=== PATIENT | male | born 1950 | race Caucasian/White ===

== ENCOUNTER 2016-08-02 11:47 | Observation (INO) | payer MEDICARE ==
[2016-08-02] MEDS ORDERED: NS 0.9% 1000 ML* 1,000 ML IV ONE (12:13)
[2016-08-02 12:40] LABS: Hematocrit 46 % (42-52); Hemoglobin 15.1 g/dl (14.0-18.0); Mean Corpuscular HGB Conc 33 g/dl (31-36); Mean Corpuscular Hemoglobin 31 pg (27-31); Mean Corpuscular Volume 94 fL (80-94); Mean Platelet Volume 9 um3 (7.4-10.4); Red Blood Count 4.88 10^6/ul (4.0-5.4); Red Cell Distribution Width 14 % (10.5-15); White Blood Count 14.8 10^3/ul (3.5-10.8)
[2016-08-02 12:44] LABS: Comments Flag Yes
[2016-08-02 12:45] LABS: Add Diff/Slide Review? Slide Review Added
[2016-08-02 12:48] LABS: Urine Bacteria Absent (Absent)
[2016-08-02 12:55] LABS: Albumin 4.8 g/dL (3.2-5.2); BUN/Creatinine Ratio 27.5 (8-20); C Reactive Protein 31.38 mg/L (< 5.00); Calcium 9.8 mg/dL (8.6-10.3); EGFR African American 60.5 (>60); Globulin 3.1 g/dL (2-4); Total Bilirubin 1.4 mg/dL (0.2-1.0); Total Protein 7.9 g/dL (6.4-8.9)
--- NOTE | 2016-08-02 13:30 | RAD ---
INDICATION: RIGHT flank pain. Hematuria. Dysuria. COMPARISON: None. TECHNIQUE: Multidetector CT images were obtained from the lung bases to the ischial tuberosities. Evaluation of the viscera is limited without IV contrast. Multiplanar reformation. REPORT: Images through the inferior thorax are remarkable for mild interstitial edema and dependent atelectasis. Prosthetic mitral valve noted. Mild cardiomegaly. The liver, gallbladder, pancreas, and spleen are unremarkable. Negative for CT abnormality of the upper GI, small bowel, or appendix visualized along the RIGHT pelvic sidewall. Predominant sigmoid moderately severe colonic diverticulosis without findings of diverticulitis. Negative for ascites or free air. Small fat-containing indirect appearing LEFT inguinal hernia without inflammatory change. Normal adrenal glands. Moderate RIGHT pelvicaliectasis noted with minimal perinephric inflammatory stranding. Negative for ureteral dilatation. 5 mm calcification visualized at the pelvic inlet where the RIGHT ureter crosses the distal RIGHT common iliac artery is most likely a vascular calcification. No definitive ureteral stone visualized. Negative for LEFT hydronephrosis. Unremarkable LEFT ureter. Largely decompressed urinary bladder is remarkable for diffuse wall thickening. Unremarkable prostate. Symmetric seminal vesicles. Negative for lymphadenopathy. Atherosclerotic plaque without aneurysm of the abdominal aorta or iliac arteries. Subchondral cyst at the caudal aspect of the RIGHT sacroiliac joint on the iliac margin. No suspicious focal osseous lesions evident. IMPRESSION: 1. Mild interstitial edema at the visualized lung bases. 2. Moderate RIGHT pelvicaliectasis noted with minimal perinephric inflammatory stranding. Negative for ureteral dilatation. 5 mm calcification visualized at the pelvic inlet where the RIGHT ureter crosses the distal RIGHT common iliac artery is most likely a vascular calcification. No definitive ureteral stone visualized. Consider RIGHT pyelonephritis. 3. Diffusely thickened urinary bladder wall most concerning for cystitis. Correlate with urinalysis.
[2016-08-02 13:43] LABS: Potassium 4.1 mmol/L (3.5-5.0)
[2016-08-02] MEDS ORDERED: cefTRIAXone VIAL(*) 1,000 MG in NS 0.9% 50 ML* 50 ML IVPB ONE (13:48)
[2016-08-02] MEDS ORDERED: cefTRIAXone(*) 1 GM ADVAN/BAG ONE (14:01)
--- NOTE | 2016-08-02 14:33 | ED ---
Anupam Flowers Karl, scribed for Jerry Fair MD on 08/02/16 at 1233 . GI/ HPI - HPI Summary HPI Summary: 65 y/o M presents with 7/10 non-radiating right sided flank pain that began 2 days ago. Pt reported that he has been treating himself with "hot water and ibuprofen" but his pain still persists. Pt , at bedside, reported that the pt has had hematuria and mild pain with urination for the last 4 days and was put on abx for a suspected UTI. Pt denied nausea and vomiting. FHx: kidney stones. 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 - Onset/Duration: Started Days Ago, Atraumatic, Still Present Timing: Constant Severity: Moderate Current Severity: Moderate Pain Intensity: 8 - 0-10 numeric scale Location of Pain: Flank - right Pain Characteristics: Sharp Associated Signs and Symptoms: Positive: Hematuria, Dysuria Aggravating Factor(s): Nothing Alleviating Factor(s): Nothing - Additional Pertinent History Primary Care Physician: [facility] - Allergy/Home Medications Allergies/Adverse Reactions: Allergies Allergy/AdvReac Type Severity Reaction Status Date / Time Milk-related Compounds Allergy Diarrhea Verified 08/02/16 12:00 PMH/Surg Hx/FS Hx/Imm Hx Previously Healthy: No Endocrine/Hematology History: Reports: Hx Anticoagulant Therapy Denies: Hx Diabetes, Hx Thyroid Disease Cardiovascular History: Reports: Hx Hypertension, Hx Rheumatic Fever, Hx Valvular Heart Disease - MV replaced, Other Cardiovascular Problems/Disorders - Endocarditis Denies: Hx Pacemaker/ICD Respiratory History: Denies: Hx Asthma, Hx Chronic Obstructive Pulmonary Disease (COPD) History: Denies: Hx Renal Disease Sensory History: Reports: Hx Contacts or Glasses Opthamlomology History: Reports: Hx Contacts or Glasses Neurological History: Denies: Hx Dementia, Hx Seizures Psychiatric History: Reports: Hx Depression Denies: Hx Substance Abuse - Surgical History Surgery Procedure, Year, and Place: HEART VALVE REPLacement - Immunization History Date of Tetanus Vaccine: nka Date of Influenza Vaccine: nka Infectious Disease History: No Infectious Disease History: Denies: Hx Hepatitis, Hx Human Immunodeficiency Virus (HIV), History Other Infectious Disease, Traveled Outside the [place] in Last 30 Days - Family History Known Family History: Positive: Other - kidney stones - Social History Alcohol Use: Daily Alcohol Amount: glass of wine a day at minimum Substance Use Type: Reports: Marijuana Hx Tobacco Use: Yes Smoking Status (MU): Former Smoker Review of Systems Constitutional: Negative Eyes: Negative ENT: Negative Cardiovascular: Negative Respiratory: Negative Negative: Vomiting, Nausea Positive: dysuria, flank pain - right side, hematuria Musculoskeletal: Negative Skin: Negative Neurological: Negative Psychological: Normal All Other Systems Reviewed And Are Negative: Yes Physical Exam - Summary Physical Exam Summary: VITAL SIGNS: Reviewed. GENERAL: Patient is a well developed and nourished male who is lying comfortable in the stretcher. Patient is not in any acute respiratory distress. HEAD AND FACE: Normocephalic and atraumatic. EYES: PERRLA, EOMI x 2, No injected conjunctiva. EARS: Hearing grossly intact. Ear canals and tympanic membranes are WNL. MOUTH: Oropharynx within normal limits. NECK: Supple, trachea is midline, no adenopathy, no JVD. CHEST: Symmetric, no tenderness at palpation LUNGS: Clear to auscultation bilaterally. No wheezing or crackles. CVS: RRR,, S1 and S2 present, Positive ESM II/. ABDOMEN: Soft, non-tender. No signs of distention. Positive bowel sounds. No rebound no guarding, and no masses palpated. No abdominal bruit or pulsations. Positive right CVATs. EXTREMITIES: FROM in all major joints, no edema, no cyanosis or clubbing. NEURO: Alert and oriented x 3. No acute neurological deficits. Speech is normal. SKIN: Dry and warm Triage Information Reviewed: Yes Vital Signs On Initial Exam: Initial Vitals Temp Pulse Resp BP Pulse Ox 98.5 F 98 16 152/86 100 08/02/16 11:56 08/02/16 11:56 08/02/16 11:56 08/02/16 11:56 08/02/16 11:56 Vital Signs Reviewed: Yes Diagnostics - Vital Signs Vital Signs Temp Pulse Resp BP Pulse Ox 08/02/16 11:56 98.5 F 98 16 152/86 100 - Laboratory Lab Results: Lab Results 08/02/16 08/02/16 08/02/16 Range/Units 12:00 12:00 12:00 WBC 14.8 H (3.5-10.8) 10^3/ul RBC 4.88 (4.0-5.4) 10^6/ul Hgb 15.1 (14.0-18.0) g/dl Hct 46 (42-52) % MCV 94 (80-94) fL MCH 31 (27-31) pg MCHC 33 (31-36) g/dl RDW 14 (10.5-15) % Plt Count 218 (150-450) 10^3/ul MPV 9 (7.4-10.4) um3 Neut % (Auto) 79.6 (38-83) % Lymph % (Auto) 7.4 L (25-47) % Barton % (Auto) 12.7 H (1-9) % Eos % (Auto) 0.1 (0-6) % Baso % (Auto) 0.2 (0-2) % Absolute Neuts (auto) 11.8 H (1.5-7.7) 10^3/ul Absolute Lymphs (auto) 1.1 (1.0-4.8) 10^3/ul Absolute Monos (auto) 1.9 H (0-0.8) 10^3/ul Absolute Eos (auto) 0 (0-0.6) 10^3/ul Absolute Basos (auto) 0 (0-0.2) 10^3/ul Absolute Nucleated RBC 0.01 10^3/ul Nucleated RBC % 0 INR (Anticoag Therapy) 2.50 H (0.89-1.11) Sodium 132 L (133-145) mmol/L Potassium 4.1 (3.5-5.0) mmol/L Chloride 101 (101-111) mmol/L Carbon Dioxide 19 L (22-32) mmol/L Anion Gap 12 H (2-11) mmol/L BUN 41 H (6-24) mg/dL Creatinine 1.49 H (0.67-1.17) mg/dL Est GFR ( Amer) 60.5 (>60) Est GFR (Non-Af Amer) 47.0 (>60) BUN/Creatinine Ratio 27.5 H (8-20) Glucose 113 H (70-100) mg/dL Lactic Acid (0.5-2.0) mmol/L Calcium 9.8 (8.6-10.3) mg/dL Total Bilirubin 1.40 H (0.2-1.0) mg/dL AST 58 H (13-39) U/L ALT 18 (7-52) U/L Alkaline Phosphatase 67 (34-104) U/L C-Reactive Protein 31.38 H (< 5.00) mg/L Total Protein 7.9 (6.4-8.9) g/dL Albumin 4.8 (3.2-5.2) g/dL Globulin 3.1 (2-4) g/dL Albumin/Globulin Ratio 1.5 (1-3) Lipase 27 (11.0-82.0) U/L Urine Color Urine Appearance Urine pH Ur Specific [place] Urine Protein Urine Ketones Urine Blood Urine Nitrate Urine Bilirubin Urine Urobilinogen Ur Leukocyte Esterase Urine WBC (Auto) (Absent) Urine RBC (Auto) (Absent) Urine Bacteria (Absent) Urine Glucose Urine Ascorbic Acid 08/02/16 08/02/16 Range/Units 12:00 12:10 WBC (3.5-10.8) 10^3/ul RBC (4.0-5.4) 10^6/ul Hgb (14.0-18.0) g/dl Hct (42-52) % MCV (80-94) fL MCH (27-31) pg MCHC (31-36) g/dl RDW (10.5-15) % Plt Count (150-450) 10^3/ul MPV (7.4-10.4) um3 Neut % (Auto) (38-83) % Lymph % (Auto) (25-47) % Barton % (Auto) (1-9) % Eos % (Auto) (0-6) % Baso % (Auto) (0-2) % Absolute Neuts (auto) (1.5-7.7) 10^3/ul Absolute Lymphs (auto) (1.0-4.8) 10^3/ul Absolute Monos (auto) (0-0.8) 10^3/ul Absolute Eos (auto) (0-0.6) 10^3/ul Absolute Basos (auto) (0-0.2) 10^3/ul Absolute Nucleated RBC 10^3/ul Nucleated RBC % INR (Anticoag Therapy) (0.89-1.11) Sodium (133-145) mmol/L Potassium (3.5-5.0) mmol/L Chloride (101-111) mmol/L Carbon Dioxide (22-32) mmol/L Anion Gap (2-11) mmol/L BUN (6-24) mg/dL Creatinine (0.67-1.17) mg/dL Est GFR ( Amer) (>60) Est GFR (Non-Af Amer) (>60) BUN/Creatinine Ratio (8-20) Glucose (70-100) mg/dL Lactic Acid 1.2 (0.5-2.0) mmol/L Calcium (8.6-10.3) mg/dL Total Bilirubin (0.2-1.0) mg/dL AST (13-39) U/L ALT (7-52) U/L Alkaline Phosphatase (34-104) U/L C-Reactive Protein (< 5.00) mg/L Total Protein (6.4-8.9) g/dL Albumin (3.2-5.2) g/dL Globulin (2-4) g/dL Albumin/Globulin Ratio (1-3) Lipase (11.0-82.0) U/L Urine Color Red A Urine Appearance Cloudy Urine pH TNP Ur Specific [place] TNP Urine Protein TNP Urine Ketones TNP Urine Blood TNP Urine Nitrate TNP Urine Bilirubin TNP Urine Urobilinogen TNP Ur Leukocyte Esterase TNP Urine WBC (Auto) 3+(>20/hpf) H (Absent) Urine RBC (Auto) 3+(>10/hpf) H (Absent) Urine Bacteria Absent (Absent) Urine Glucose TNP Urine Ascorbic Acid TNP Result Diagrams: 08/02/16 12:00 08/02/16 12:00 Lab Statement: Any lab studies that have been ordered have been reviewed, and results considered in the medical decision making process. - CT CT Abd/Pelvis CT Interpretation: Positive (See Comments) CT Interpretation Completed By: Radiologist - IMPRESSION: 1. Mild interstitial edema at the visualized lung bases. 2. Moderate RIGHT pelvicaliectasis noted with minimal perinephric inflammatory stranding. Negative for ureteral dilatation. 5 mm calcification visualized at the pelvic inlet where the RIGHT ureter crosses the distal RIGHT common iliac artery is most likely a vascular calcification. No definitive ureteral stone visualized. Consider RIGHT pyelonephritis. 3. Diffusely thickened urinary bladder wall most concerning for cystitis. Correlate with urinalysis. GIGU Course/Dx - Course Assessment/Plan: 65 y/o M presents with 7/10 non-radiating right sided flank pain that began 2 days ago. Pt reported that he has been treating himself with "hot water and ibuprofen" but his pain still persists. Pt , at bedside, reported that the pt has had hematuria and mild pain with urination for the last 4 days and was put on abx for a suspected UTI. Pt denied nausea and vomiting. FHx: kidney stones. Blood work: Abdominal and Pelvic CT impression: 1. Mild interstitial edema at the visualized lung bases. 2. Moderate RIGHT pelvicaliectasis noted with minimal perinephric inflammatory stranding. Negative for ureteral dilatation. 5 mm calcification visualized at the pelvic inlet where the RIGHT ureter crosses the distal RIGHT common iliac artery is most likely a vascular calcification. No definitive ureteral stone visualized. Consider RIGHT pyelonephritis. 3. Diffusely thickened urinary bladder wall most concerning for cystitis. Correlate with urinalysis. In the ED course he was given IV fluids, Rocephin since patient since to have Cystitis. He did not require pain medications. Questionable kidney stone. I discussed the case Dr. Mcadams and he recommends for the patient to be admitted to the hospitalist, IV antibiotics, retroperitoneal U/S in AM. I discuss my physical exam, findings and test results with Dr. Morin from the hospitalist services and she agrees to admit patient to his services. Patient is hemodynamically stable alert and oriented x 3. - Diagnoses Differential Diagnoses - Male: Renal Calculi, Renal Colic, Ureteral Calculi, Urinary Tract Infection Provider Diagnoses: Hematuria, Cystitis, Questionable kidney stone, Renal failure - Physician Notifications Discussed Care Of Patient With: Dr. Mcadams (Urology) at 12:[address] abd/Pelvis. Dr. Mcadams at 14:02 who reccomended placing the pt on abx and Rocephin, and to admit the pt and repeat retroperitoneal US in the morning. Dr. Morin (Hospitalist) at 14:05 who agreed to admit the pt. Discharge - Discharge Plan Condition: Stable Disposition: ADMITTED TO [facility] documentation as recorded by the Anupam cramer Karl accurately reflects the service I personally performed and the decisions made by me, Jerry Fair MD.
[2016-08-02 15:28] LABS: Urine Bacteria Absent (Absent); Urine Bilirubin Negative (Negative); Urine Glucose Negative (Negative); Urine Nitrite Negative (Negative)
[2016-08-02] MEDS ORDERED: Acetaminophen TAB* 325 MG ONE (16:58)
[2016-08-02] MEDS ORDERED: Warfarin TAB(*) 6 MG PO SCH (17:00)
[2016-08-02] MEDS ORDERED: Acetaminophen TAB* 325 MG PO PRN (17:25)
[2016-08-02] MEDS: oxyCODONE/Acetamin 5/325 MG* TAB PO PRN (20:12)
[2016-08-02] MEDS: Tamsulosin CAP* 0.4 MG PO SCH (20:32)
[2016-08-02] MEDS: Labetalol TAB* 200 MG PO SCH (20:32)
--- NOTE | 2016-08-02 21:38 | HP ---
ADMISSION HISTORY AND PHYSICAL: DATE OF ADMISSION: 08/02/16 PRIMARY CARE PROVIDER: Dr. Ge at [facility] HEALTHCARE PROXY: His , Libra. CODE STATUS: Full. SOURCE OF INFORMATION: History obtained from interview with the patient. RELIABILITY: Fair. CHIEF COMPLAINT: Right flank pain. HISTORY OF PRESENT ILLNESS: This 65-year-old man with past medical history of bacterial endocarditis around 2009 complicated by need for mitral valve replacement, now on lifelong anticoagulation who has been in his usual state of health until 3 to 4 days prior and notes he woke up in the middle of the night with right flank pain and felt the sensation that he needed to urinate. He tried to urinate, but only little came out, but he did not notice associated dysuria. The pain continued, he described bad enough that he was almost writhing in bed. He was using hot water as well as Motrin, but notes that he only took 4 caps of Motrin over 2 days with minimal pain relief. He continued to have dysuria associated with urinary hesitancy, but without urinary frequency. He had decreased p.o. intake. Two days prior to his presentation, he went to see his PCP, was seen by another physician in the clinic because of increasingly dark urine. He was noted to have right flank pain at that time. Urinalysis and culture was sent and he was started on an unknown antibiotics. The pain continued and so he presented to the emergency room today. He denies any recent fevers, chills, or night sweats. He denies any cough, shortness of breath, chest pain, nausea, vomiting, lightheadedness, loss of consciousness, or near loss of consciousness. He denies bleeding from any other sources. In the emergency room, his pain is well controlled, he was interactive, pleasant , in no distress. He had no other complaints. PAST MEDICAL HISTORY: History of atrial fibrillation, history of subacute bacterial endocarditis around 2009, history of rheumatic fever, history of mitral valve replacement, lifelong anticoagulation, history of hypertension. MEDICATIONS: 1. Labetalol 200 mg twice daily. 2. Verapamil 240 mg daily. 3. Coumadin 6 mg daily, adjust as needed. 4. Folic acid 1 tab daily. 5. Ferrous sulfate 325 mg daily. 6. Vitamin D3 2000 units daily, although he notes he takes this from his . 7. Viagra 50 units daily as needed. 8. Aspirin 81 mg daily. ALLERGIES: MILK-RELATED COMPOUNDS. FAMILY HISTORY: Kidney stones. SOCIAL HISTORY: Former tobacco. Drinks wine weekly. 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 REVIEW OF SYSTEMS: As per HPI, otherwise all other systems negative. PHYSICAL EXAMINATION GENERAL: Appears stated age, lying on his left side in bed, interactive, pleasant, in no apparent distress. VITAL SIGNS: In the emergency room, blood pressure 156/84, heart rate 82, temp 98, respiratory rate is 16, T-max in the emergency room was 98.5, 98% on room air. HEENT: His oropharynx is clear. He has moist mucous membranes. Sclerae anicteric. NECK: He has non-elevated JVD. No lymphadenopathy. LUNGS: Clear to auscultation. HEART: He has regular rate and rhythm. He has 2/6 holosystolic ejection murmur loudest at the apex, nondisplaced PMI. ABDOMEN: Soft, nontender, nondistended. No suprapubic tenderness. He has right costovertebral angle tenderness. EXTREMITIES: Warm, well perfused. 2+ peripheral pulses. Less than 2-second cap refill. Good skin turgor. No clubbing, cyanosis, or edema. NEUROLOGIC: He is alert and oriented x3. His cranial nerves II through XII are intact. He has no apparent anxiety, agitation, or depression. LABORATORY DATA/DIAGNOSTIC STUDIES: Labs reviewed, notable for urinalysis positive for 2+ protein, trace ketones, 3+ blood, 2 to 3+ white blood cells and no bacteria. BUN is 41, creatinine 1.49, bicarbonate is 19, sodium 132, CRP is 31, total bilirubin 1.4, AST 58, ALT 18, INR is 2.5. White blood cell count is 14.8, 79% neutrophils, hemoglobin is 15.1, platelets of 218. Data reviewed, CT abdomen and pelvis. IMPRESSION: Mild interstitial edema at the visualized lung bases. Moderate right pelvicaliectasis noted with minimal perinephric inflammatory stranding. Negative for ureteral dilatation. A 5 mm calcification visualized at the pelvic inlet where the right ureter crosses the distal right common iliac artery is most likely a vascular calcification. No definite ureteral stone is visualized. Consider right pyelonephritis. Diffusely thickened urinary bladder wall most concerning for cystitis. Correlate with urinalysis. ASSESSMENT AND PLAN: A 65-year-old man on full dose anticoagulation for mitral valve replacement, developed right flank pain associated with hematuria. Found with acute kidney injury in the emergency room. Right flank pain. CAT scan is not definitive for pyelonephritis versus nephrolithiasis based on the location of calcification. His pain is nonradiating. Certainly, pyelonephritis is a possibility in the setting of the notable leukocytosis. In either case, a stone would not appear to be obstructing at this point. We will treat for pyelonephritis, received ceftriaxone in the emergency room and dose again tomorrow. Contact [facility] for records regarding recent urinalysis and culture sent which would explain absent bacteria on our urinalysis here. Lactated Ringer's, given anion gap metabolic acidosis for 2 additional L. Start finasteride as well as tamsulosin should this be nephrolithiasis. Acute kidney injury in the setting of potentially urinary tract infection or nephrolithiasis as well as hematuria. Lactated Ringer's as above and check in the morning. Hematuria. Again in above, I have suspected urinary tract infection especially with thickened bladder wall while on full dose Coumadin. I cannot hold Coumadin in this situation in the setting of mechanical mitral valve. However, we will hold the patient's low dose aspirin. Currently, the patient appears hemoconcentrated, not be losing significant amounts of blood to his urine. In fact, his urine appears to be clearing while in the emergency room. First sample was maroon colored and repeat urine while the patient was in the room was dark trent. Mechanical mitral valve. Continue Coumadin, check INR in the morning. History of atrial fibrillation. Continue labetalol and verapamil. DVT prophylaxis. Coumadin on goal 2.5 to 3.5 given mechanical mitral valve. Code status is full, discussed with the patient. [id number]/[facility] #: [id number] [facility]
--- NOTE | 2016-08-02 23:41 | CONS ---
UROLOGY CONSULTATION: DATE OF CONSULT: 08/02/16 AGE: 65 years, male. REQUESTING PHYSICIAN: Dr. Fair in the emergency department. DIAGNOSES: 1. Right flank pain. 2. Gross hematuria. 3. Right hydronephrosis. HISTORY OF PRESENT ILLNESS: Mook Juan is a 65-year-old gentleman who is anticoagulated on Coumadin. He presented with 3 to 4-day history of right flank pain and gross hematuria. He had been seen by primary provider at [facility] few days ago for this complaint and had been started on antibiotics with a presumed diagnosis of urinary infection. I am not able to find at the present time whether a urine culture was done and whether this was positive. He continued to have progressively worsening right flank pain and gross hematuria and presented to the emergency room. CT scan there was done, which showed moderate right hydronephrosis. There was no definite ureteral dilatation noted. There was a 5 mm calcification noted in the proximity of the right ureter close to the iliac vessels, which according to Dr. Cordon is most likely to be a vascular calcification. There was no other obvious explanation for the right hydronephrosis, although the bladder was thick walled with a presumed diagnosis of cystitis. There is no prior history of kidney stones. There is a strong family history of kidney stones in the form of his father and brothers. He is on Coumadin for a history of valvular disorder and is status post mitral valve replacement a few years ago with a [facility] valve. He also has a history of hypertension, rheumatic fever, and is followed by Dr. Vernon of [facility]. PHYSICAL EXAM: Reveals a pleasant healthy appearing gentleman, who is currently fairly comfortable. Blood pressure is 152/86, pulse 98 per minute, respirations 16 per minute, oxygen saturation 100%. Cardiovascular Exam: Regular rate and rhythm. S1 and S2. There is a 2/6 systolic ejection murmur. Lungs are clear bilaterally. Abdomen is soft and nontender. The patient is not distended. There is right flank tenderness. DIAGNOSTIC STUDIES/LAB DATA: I reviewed the labs and the imaging studies and had a detailed discussion with the patient. Of note in the imaging studies, his creatinine is elevated to 1.49 and the white count is elevated to 14.8. The urinalysis showed red colored urine with 3+ rbc's and wbc's, but absent bacteria. IMPRESSION: My suspicion is given the persistence of right flank pain and hematuria with findings of right hydronephrosis that he most likely has a calculus in the right ureter. Since he is currently comfortable, the plan will be to keep him continue hydration and to continue Flomax 0.4 mg once a day for medical expulsive therapy. The plan is to do a renal sonogram tomorrow morning and to see if the hydronephrosis improves or persists. If the hydronephrosis persists or the flank pain worsens, then consideration would have to be given to right ureteroscopy, stent insertion, possible laser. I have discussed all these in detail with Mr. Juan and all his questions were answered. CC: Dr. Ge; Dr. Mcadams; Dr. Tanner Dawson * [id number]/[facility] #: [id number] MTDTr[facility]
[2016-08-03] MEDS: oxyCODONE/Acetamin 5/325 MG* TAB PO PRN ×4 (00:11→17:04)
[2016-08-03 06:02] LABS: Hematocrit 34 % (42-52); Hemoglobin 11.5 g/dl (14.0-18.0); Mean Corpuscular HGB Conc 34 g/dl (31-36); Mean Corpuscular Hemoglobin 32 pg (27-31); Mean Corpuscular Volume 93 fL (80-94); Mean Platelet Volume 9 um3 (7.4-10.4); Red Blood Count 3.65 10^6/ul (4.0-5.4); Red Cell Distribution Width 14 % (10.5-15); White Blood Count 7.7 10^3/ul (3.5-10.8)
[2016-08-03 06:15] LABS: BUN/Creatinine Ratio 28.2 (8-20); Calcium 8.7 mg/dL (8.6-10.3); EGFR African American 85.9 (>60); EGFR Non-African American 66.8 (>60); Potassium 4.2 mmol/L (3.5-5.0)
[2016-08-03] MEDS: Ferrous Sulfate TAB* 325 MG PO SCH (10:08)
[2016-08-03] MEDS: Folic Acid TAB* 1 MG PO SCH (10:08)
[2016-08-03] MEDS: Verapamil SR TAB* 240 MG PO SCH (10:08)
[2016-08-03] MEDS: Finasteride TAB* 5 MG PO SCH (10:19)
[2016-08-03] MEDS: Labetalol TAB* 200 MG PO SCH ×2 (10:19→21:53)
--- NOTE | 2016-08-03 10:45 | RAD ---
Indication: RIGHT flank pain. Gross hematuria. Comparison: August 02, 2016 CT. Technique: Renal ultrasound. Report: 11.7 x 6.0 x 6.1 cm RIGHT kidney with normal cortical echogenicity is remarkable for mild hydronephrosis with suggestion of interval decrease compared with the CT of one day prior. Negative for perinephric fluid. No conspicuous RIGHT renal stones. RIGHT ureteral jet documented at the urinary bladder. Dependent intermediate echo debris in the urinary bladder consistent with blood products given the clinical history. 11.8 x 5.5 x 4.5 cm LEFT kidney with normal cortical echogenicity is negative for conspicuous stones, hydronephrosis, or focal lesions. Incidental 3 cm subcapsular hyperechoic lesion at the RIGHT posterior hepatic segment corresponding with a subtle hypodense lesion on CT is most consistent with a hemangioma. IMPRESSION: Interval decrease in magnitude of RIGHT hydronephrosis compared with the CT of one day prior. RIGHT ureteral jet documented.
[2016-08-03] MEDS: cefTRIAXone VIAL(*) 1,000 MG in NS 0.9% 50 ML* 50 ML IVPB SCH (14:07)
[2016-08-03 14:18] LABS: Hematocrit 32 % (42-52); Hemoglobin 10.7 g/dl (14.0-18.0)
--- NOTE | 2016-08-03 14:19 | PN ---
Subjective Date of Service: 08/03/16 Interval History: Pain still present but improved Urine is maroon colored Has no other complaints Objective Active Medications: Acetaminophen (Tylenol Tab*) 650 mg PO Q6H PRN PRN Reason: PAIN Last Admin: 08/02/16 23:20 Dose: 650 mg Ferrous Sulfate (Ferrous Sulfate Tab*) 325 mg PO DAILY [facility] Last Admin: 08/03/16 10:08 Dose: 325 mg Finasteride (Proscar Tab*) 5 mg PO DAILY [facility] Last Admin: 08/03/16 10:19 Dose: 5 mg Folic Acid (Folvite Tab*) 1 mg PO DAILY [facility] Last Admin: 08/03/16 10:08 Dose: 1 mg Lactated Ringer's (Lactated Ringers 1000 Ml Bag*) 1,000 mls @ 150 mls/hr IV PER RATE [facility] Stop: 08/03/16 22:39 Last Admin: 08/03/16 00:15 Dose: 150 mls/hr Ceftriaxone Sodium 1,000 mg/ (Sodium Chloride) 50 mls @ 200 mls/hr IVPB Q24H [facility] Last Admin: 08/03/16 14:07 Dose: 200 mls/hr Lactated Ringer's (Lactated Ringers 1000 Ml Bag*) 1,000 mls @ 150 mls/hr IV .PER RATE [facility] Labetalol HCl (Trandate Tab*) 200 mg PO BID [facility] Last Admin: 08/03/16 10:19 Dose: 200 mg Oxycodone/Acetaminophen (Percocet 5/325 Tab*) 1 tab PO Q4H PRN PRN Reason: Pain Last Admin: 08/03/16 12:39 Dose: 1 tab Pharmacy Profile Note (Coumadin Daily Reminder*) 1 note FOLLOW UP 1700 [facility] Tamsulosin HCl (Flomax Cap*) 0.4 mg PO BEDTIME [facility] Last Admin: 08/02/16 20:32 Dose: 0.4 mg Verapamil HCl (Calan Sr Tab*) 240 mg PO DAILY [facility] Last Admin: 08/03/16 10:08 Dose: 240 mg Vital Signs 08/02/16 08/02/16 08/02/16 15:00 15:58 16:00 Temperature Pulse Rate 86 84 84 Respiratory Rate Blood Pressure 139/74 139/73 (mmHg) O2 Sat by Pulse 96 96 95 Oximetry 08/02/16 08/02/16 08/02/16 16:50 16:57 17:45 Temperature 99.6 F 99.6 F Pulse Rate 82 82 Respiratory 18 16 16 Rate Blood Pressure 154/66 154/66 (mmHg) O2 Sat by Pulse 98 Oximetry 08/02/16 08/02/16 08/02/16 19:56 20:00 20:12 Temperature 97.9 F Pulse Rate 71 Respiratory 20 16 18 Rate Blood Pressure 141/66 (mmHg) O2 Sat by Pulse 95 Oximetry 08/02/16 08/02/16 08/03/16 22:12 23:41 00:11 Temperature 97.8 F Pulse Rate 63 Respiratory 16 16 16 Rate Blood Pressure 145/70 (mmHg) O2 Sat by Pulse 98 Oximetry 08/03/16 08/03/16 08/03/16 02:11 07:52 08:00 Temperature Pulse Rate Respiratory 16 16 18 Rate Blood Pressure (mmHg) O2 Sat by Pulse Oximetry 08/03/16 08/03/16 08/03/16 08:41 09:52 12:39 Temperature 97.5 F Pulse Rate 86 Respiratory 20 16 16 Rate Blood Pressure 164/78 (mmHg) O2 Sat by Pulse 98 Oximetry Appearance: NAD Eyes: No Scleral Icterus, PERRLA Ears/Nose/Mouth/Throat: Mucous Membranes Moist Neck: NL Appearance and Movements; NL JVP, Trachea Midline Respiratory: Symmetrical Chest Expansion and Respiratory Effort, Clear to Auscultation Cardiovascular: RRR, - - 2/6 holosystolic murmur Abdominal: NL Sounds; No Tenderness; No Distention, No Hepatosplenomegaly, - - right CVAT Skin: No Rash or Ulcers Neurological: Alert and Oriented x 3 Result Diagrams: 08/03/16 05:12 08/03/16 05:12 Additional Lab and Data: Lab Results 08/02/16 08/02/16 08/02/16 Range/Units 12:00 12:00 12:00 WBC 14.8 H (3.5-10.8) 10^3/ul RBC 4.88 (4.0-5.4) 10^6/ul Hgb 15.1 (14.0-18.0) g/dl Hct 46 (42-52) % MCV 94 (80-94) fL MCH 31 (27-31) pg MCHC 33 (31-36) g/dl RDW 14 (10.5-15) % Plt Count 218 (150-450) 10^3/ul MPV 9 (7.4-10.4) um3 Neut % (Auto) 79.6 (38-83) % Lymph % (Auto) 7.4 L (25-47) % Sabine % (Auto) 12.7 H (1-9) % Eos % (Auto) 0.1 (0-6) % Baso % (Auto) 0.2 (0-2) % Absolute Neuts (auto) 11.8 H (1.5-7.7) 10^3/ul Absolute Lymphs (auto) 1.1 (1.0-4.8) 10^3/ul Absolute Monos (auto) 1.9 H (0-0.8) 10^3/ul Absolute Eos (auto) 0 (0-0.6) 10^3/ul Absolute Basos (auto) 0 (0-0.2) 10^3/ul Absolute Nucleated RBC 0.01 10^3/ul Nucleated RBC % 0 INR (Anticoag Therapy) 2.50 H (0.89-1.11) Sodium 132 L (133-145) mmol/L Potassium 4.1 (3.5-5.0) mmol/L Chloride 101 (101-111) mmol/L Carbon Dioxide 19 L (22-32) mmol/L Anion Gap 12 H (2-11) mmol/L BUN 41 H (6-24) mg/dL Creatinine 1.49 H (0.67-1.17) mg/dL Est GFR ( Amer) 60.5 (>60) Est GFR (Non-Af Amer) 47.0 (>60) BUN/Creatinine Ratio 27.5 H (8-20) Glucose 113 H (70-100) mg/dL Lactic Acid (0.5-2.0) mmol/L Calcium 9.8 (8.6-10.3) mg/dL Total Bilirubin 1.40 H (0.2-1.0) mg/dL AST 58 H (13-39) U/L ALT 18 (7-52) U/L Alkaline Phosphatase 67 (34-104) U/L C-Reactive Protein 31.38 H (< 5.00) mg/L Total Protein 7.9 (6.4-8.9) g/dL Albumin 4.8 (3.2-5.2) g/dL Globulin 3.1 (2-4) g/dL Albumin/Globulin Ratio 1.5 (1-3) Lipase 27 (11.0-82.0) U/L Urine Color Urine Appearance Urine pH Ur Specific Tillson Urine Protein Urine Ketones Urine Blood Urine Nitrate Urine Bilirubin Urine Urobilinogen Ur Leukocyte Esterase Urine WBC (Auto) (Absent) Urine RBC (Auto) (Absent) Urine Bacteria (Absent) Urine Glucose Urine Ascorbic Acid 08/02/16 08/02/16 Range/Units 12:00 12:10 WBC (3.5-10.8) 10^3/ul RBC (4.0-5.4) 10^6/ul Hgb (14.0-18.0) g/dl Hct (42-52) % MCV (80-94) fL MCH (27-31) pg MCHC (31-36) g/dl RDW (10.5-15) % Plt Count (150-450) 10^3/ul MPV (7.4-10.4) um3 Neut % (Auto) (38-83) % Lymph % (Auto) (25-47) % Sabine % (Auto) (1-9) % Eos % (Auto) (0-6) % Baso % (Auto) (0-2) % Absolute Neuts (auto) (1.5-7.7) 10^3/ul Absolute Lymphs (auto) (1.0-4.8) 10^3/ul Absolute Monos (auto) (0-0.8) 10^3/ul Absolute Eos (auto) (0-0.6) 10^3/ul Absolute Basos (auto) (0-0.2) 10^3/ul Absolute Nucleated RBC 10^3/ul Nucleated RBC % INR (Anticoag Therapy) (0.89-1.11) Sodium (133-145) mmol/L Potassium (3.5-5.0) mmol/L Chloride (101-111) mmol/L Carbon Dioxide (22-32) mmol/L Anion Gap (2-11) mmol/L BUN (6-24) mg/dL Creatinine (0.67-1.17) mg/dL Est GFR ( Amer) (>60) Est GFR (Non-Af Amer) (>60) BUN/Creatinine Ratio (8-20) Glucose (70-100) mg/dL Lactic Acid 1.2 (0.5-2.0) mmol/L Calcium (8.6-10.3) mg/dL Total Bilirubin (0.2-1.0) mg/dL AST (13-39) U/L ALT (7-52) U/L Alkaline Phosphatase (34-104) U/L C-Reactive Protein (< 5.00) mg/L Total Protein (6.4-8.9) g/dL Albumin (3.2-5.2) g/dL Globulin (2-4) g/dL Albumin/Globulin Ratio (1-3) Lipase (11.0-82.0) U/L Urine Color Red A Urine Appearance Cloudy Urine pH TNP Ur Specific Tillson TNP Urine Protein TNP Urine Ketones TNP Urine Blood TNP Urine Nitrate TNP Urine Bilirubin TNP Urine Urobilinogen TNP Ur Leukocyte Esterase TNP Urine WBC (Auto) 3+(>20/hpf) H (Absent) Urine RBC (Auto) 3+(>10/hpf) H (Absent) Urine Bacteria Absent (Absent) Urine Glucose TNP Urine Ascorbic Acid TNP Assess/Plan/Problems-Billing Assessment: 65 yo M 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 Holding coumadin (4) History of atrial fibrillation Comment: verapamil labetalol (5) DVT prophylaxis Comment: coumadin
[2016-08-03] MEDS: Tamsulosin CAP* 0.4 MG PO SCH (21:53)
[2016-08-04 06:09] LABS: Hematocrit 31 % (42-52); Hemoglobin 10.3 g/dl (14.0-18.0); Mean Corpuscular HGB Conc 34 g/dl (31-36); Mean Corpuscular Hemoglobin 32 pg (27-31); Mean Corpuscular Volume 93 fL (80-94); Mean Platelet Volume 8 um3 (7.4-10.4); Red Blood Count 3.26 10^6/ul (4.0-5.4); Red Cell Distribution Width 14 % (10.5-15); White Blood Count 4.5 10^3/ul (3.5-10.8)
[2016-08-04 06:22] LABS: BUN/Creatinine Ratio 22.2 (8-20); Calcium 8.3 mg/dL (8.6-10.3); EGFR Non-African American 75.4 (>60)
[2016-08-04] MEDS: Ferrous Sulfate TAB* 325 MG PO SCH (08:53)
[2016-08-04] MEDS: Verapamil SR TAB* 240 MG PO SCH (08:53)
[2016-08-04] MEDS: Folic Acid TAB* 1 MG PO SCH (08:54)
[2016-08-04] MEDS: Labetalol TAB* 200 MG PO SCH (08:55)
[2016-08-04] MEDS: Finasteride TAB* 5 MG PO SCH (08:56)
[2016-08-04] MEDS ORDERED: Iohexol 300* (CONTRAST) 10 ML SDV IV ONE (11:46)
--- NOTE | 2016-08-04 13:27 | RAD ---
CLINICAL HISTORY: Kidney infection COMPARISON: Scan dated August 03, 2016, CT dated August 02, 2016 TECHNIQUE: Multiple contiguous axial CT scans were obtained of the abdomen and pelvis both before and after the administration of nonionic intravenous contrast. Delayed images were obtained through the renal collecting system. Coronal and sagittal multiplanar reformations are submitted for review. 3-D volumetric reconstructions are submitted of the renal collecting system. Oral contrast was not administered. FINDINGS: LUNG BASES: There is interlobular septal thickening of the lung bases bilaterally. LIVER: There is a peripherally enhancing hepatic lesion the right lobe of liver. Imaging characteristics are most consistent with hemangioma. BILE DUCTS: There is no intrahepatic or extrahepatic biliary dilatation. GALLBLADDER: The gallbladder is normal, without pericholecystic inflammatory change. PANCREAS: The pancreas is normal, without mass or ductal dilatation. SPLEEN: Normal in size and appearance. UPPER GI TRACT: Evaluation of the gastrointestinal tract is limited by incomplete gastric distention. The upper GI tract is unremarkable. SMALL BOWEL AND MESENTERY: The small bowel is normal in contour, course, and caliber. There is no obstruction or dilatation. COLON: There are multiple diverticula of the sigmoid colon. There is no pericolonic inflammatory change. ADRENALS: Normal bilaterally. KIDNEYS: There has been interval decrease in the degree of pelviectasis on the right. There is thickening of the urothelium diffusely of the right ureter and renal pelvis BLADDER: The bladder is smooth in contour. PELVIC ORGANS: The prostate gland is normal. The seminal vesicles are symmetric. AORTA: There is calcific atherosclerotic disease of the abdominal aorta and its branches, without aneurysmal dilatation IVC: Unremarkable LYMPH NODES: There is no lymphadenopathy by size criteria. ABDOMINAL WALL: There is no evidence for abdominal wall hernia. BONES AND SOFT TISSUES: There are minimal degenerative changes. There is soft tissue density of the left S2 nerve root with widening of the foramen OTHER: None IMPRESSION: 1. THERE IS THICKENING OF THE UROTHELIUM OF THE RIGHT RENAL COLLECTING SYSTEM WITH INTERVAL DECREASE IN THE DEGREE OF PELVIECTASIS ON THE RIGHT. THIS MAY REFLECT AN INFLAMMATORY OR INFECTIOUS PROCESS OF THE UROTHELIUM. UROTHELIAL NEOPLASM IS ALSO WITHIN THE DIFFERENTIAL, BUT IS CONSIDERED LESS LIKELY. 2. DIVERTICULOSIS. 3. ATHEROSCLEROSIS 4. HEPATIC HEMANGIOMA. 5. 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 RECOMMEND FURTHER EVALUATION WITH CONTRAST-ENHANCED MRI OF THE SACRUM
[2016-08-04] MEDS: cefTRIAXone VIAL(*) 1,000 MG in NS 0.9% 50 ML* 50 ML IVPB SCH (14:52)
[2016-08-04 16:46] VITALS: BP 139/62
--- NOTE | 2016-08-05 08:19 | DS ---
DISCHARGE SUMMARY: DATE OF ADMISSION: 08/02/16 DATE OF DISCHARGE: 08/04/16 PRIMARY CARE PROVIDER: Emiliano Al MD. UROLOGIST: Wade Mcadams MD. PRIMARY DIAGNOSIS: Hematuria. SECONDARY DIAGNOSES: 1. Suspected pyelonephritis. 2. Acute kidney injury. 3. History of mitral valve repair, on Coumadin goal 2.5 - 3.5, supratherapeutic INR. 4. History of hypertension. MEDICATIONS ON DISCHARGE: 1. Verapamil 240 mg daily. 2. Labetalol 200 mg twice daily. 3. Folic acid one tablet daily. 4. Ferrous sulphate 325 mg daily. 5. Vitamin D3 2000 units daily. 6. Sildenafil 50 mg as needed daily. 7. Tamsulosin 0.4 mg daily. 8. Ciprofloxacin 500 mg twice daily for four additional days. 9. Coumadin hold until INR recheck and restart per primary care provider. Next check is tomorrow, already scheduled at discharge. PERTINENT MICROBIOLOGY: 1. Urine, no growth to date. 2. Urine culture obtained from [place], checked prior to initiation of antibiotics, also no growth to date. 3. Urine cytology, also sent by [place], negative for malignant cells. PERTINENT LABORATORY DATA: 1. Hemoglobin 15 on admission, 10 on discharge, stable for 48 hours. 2. Creatinine on admission 1.49, on discharge 0.99. PERTINENT IMAGING PERFORMED DURING HOSPITAL STAY: 1. CT abdomen and pelvis: Mild interstitial edema of the lung bases. Moderate right pelvocaliectasis noted with minimal inflammatory stranding. Negative for ureteral dilatation. A 5-mm calcification visualized at the pelvic inlet where the right ureter crosses the distal right common iliac artery is most likely a vascular calcification. No definitive ureteral stone visualized. Consider right pyelonephritis. Diffusely thickened urinary bladder wall, most concerning for cystitis. 2. Renal ultrasound performed the following day. Interval decrease in magnitude of right hydronephrosis compared with the CTM the prior day, right ureteral jet is identified. 3. CT urogram performed the following day. Impression: There is thickness of the urothelium of the right renal collecting system with interval decrease and a degree of pelvocaliectasis on the right. This may reflect an inflammatory infectious process of the urothelium. Urothelial neoplasm is also within the differential, but is considered less likely. Hepatic hemangioma. In the bulbous part, there is a soft tissue density of the left S2 nerve root with widening of the foramen which may represent a peripheral nerve sheath tumor. Recommend further evaluation with contrast-enhanced MRI of the sacrum. HISTORY OF PRESENT ILLNESS AND HOSPITAL COURSE: This is a 65-year-old man. Past medical history as outlined in the history of present illness. On the day of admission, presented to the hospital after seven days of right flank pain and then developing hematuria. During the course of the hospital stay, the patient's INR became supratherapeutic. He was treated with Ceftriaxone for presumed pyelonephritis. He remained afebrile. His right flank pain improved, and his hematuria improved as well. It is unclear the etiology of his hematuria. At this point, it is possible that he had nephrolithiasis with a stone that had passed. Cystitis with pyelonephritis is also a possibility, improvement with antibiotics. To be discharged on Ciprofloxacin, although urine cultures here and in [place] remained negative. It is followed in conjunction with Dr. Mcadams, who will follow with patient in clinic. If he has recurrent hematuria, he is to receive a cystoscopy. Incidentally noted was an S2 nerve root enhancement, which is just followed with an MRI as indicated above. There are no complications during this patient's hospital stay. On the day of the discharge, the patient had no pain, was tolerating diet, was ambulatory, and had clear urine. DISCHARGE FOLLOWUP: At followup, please: 1. INR is to be rechecked tomorrow. Restart Coumadin based on results, goal 2.5 to 3.5. 2. Ensure patient follows with Dr. Mcadams for continued evaluation. 3. The patient is to have an MRI of the pelvis with contrast to evaluate for nerve sheath tumor. MRI has been ordered and placed on the patient's discharge summary, although not scheduled. Reasons to return to the hospital include but not limited to recurrent or worsening symptoms including flank pain, abdominal pain, bleeding from any source, chest pain, shortness of breath, nausea, vomiting, lightheadedness, loss of consciousness, fever, chills, night sweats or inability to obtain or tolerate his medications were discussed with the patient. He acknowledged understanding. TIME SPENT: Greater than 45 minutes were spent discharging the patient, greater than half was spent [id number] with the patient. CC: Emiliano Al MD; Wade Mcadams MD * [id number]/[facility] #: [id number] [facility]ENTERTracy
== END 2016-08-04 19:05 | disposition home or self-care (01) ==
LOC: ED 11:47 → MED 14:51
PROVIDERS: ADMIT Internal Medicine; ATTEND Internal Medicine
DX: N30.91 Cystitis, unspecified with hematuria (principal); I48.91 Unspecified atrial fibrillation; N17.9 Acute kidney failure, unspecified; I10 Essential (primary) hypertension; K57.30 Diverticulosis of large intestine without perforation or abscess without bleeding; R60.9 Edema, unspecified; Z79.01 Long term (current) use of anticoagulants; Z87.891 Personal history of nicotine dependence
CPT/HCPCS: 36415; 74176; 74178; 76377; 76775; 80048; 80053; 81003; 81015; 83605; 83690; 85014; 85018; 85025; 85610; 86140; 87086; 99283; A9270-GY; G0378; J0696; Q9967

== ENCOUNTER 2018-11-20 17:11 | Emergency (ER) | payer MEDICARE ==
[2018-11-20 17:23] VITALS: BP 143/59
--- NOTE | 2018-11-20 17:36 | UC ---
Throat Pain/Nasal Negro HPI - HPI Summary HPI Summary: This patient is a 67-year-old male who presents to the urgent care with chief complaint of sore throat, sinus congestion, productive cough with white phlegm. Patient denies any chills however he is been having fevers which he reports is low-grade. Denies any difficulty swallowing, denies or swelling of the tongue or lips. He denies any chest pain shortness of breath or palpitations. He has no other complaints. - History of Current Complaint Chief Complaint: UCGeneralIllness Stated Complaint: SORE THROAT AND FEVER Time Seen by Provider: 11/20/18 17:16 Hx Obtained From: Patient Onset/Duration: Gradual Onset Severity: Mild Pain Intensity: 2 - Allergies/Home Medications Allergies/Adverse Reactions: Allergies Allergy/AdvReac Type Severity Reaction Status Date / Time Milk Containing Products Allergy Intermediate Diarrhea Verified 11/20/18 17:23 Home Medications: Home Medications Aspirin 81 mg CHEW TAB* 81 mg PO DAILY 11/20/18 [History Confirmed 11/20/18] Ramipril CAP* [Altace CAP*] 10 mg PO DAILY 11/20/18 [History Confirmed 11/20/18] Torsemide 5 mg PO DAILY WITH MEAL 11/20/18 [History Confirmed 11/20/18] Warfarin TAB(*) [Coumadin TAB(*)] 6 mg PO DAILY@1700 11/20/18 [History Confirmed 11/20/18] PMH/Surg Hx/FS Hx/Imm Hx - Additional Past Medical History Additional PMH: PMH; rheumatic fever, hematuria, pyelonephritis, initialization and Coumadin Previously Healthy: Yes Other History Of: Anticoagulant Therapy - ON COUMADIN - Surgical History Surgical History: Yes Surgery Procedure, Year, and Place: MV VALVE REPLACED - Family History Known Family History: Positive: Other - kidney stones - Social History Alcohol Use: Rare Alcohol Amount: glass of wine a day at minimum Substance Use Type: Marijuana Smoking Status (MU): Former Smoker - Immunization History Most Recent Influenza Vaccination: FALL 2015 Most Recent Tetanus Shot: UNSURE Most Recent Pneumonia Vaccination: UNSURE, BUT HAS HAD Review of Systems All Other Systems Reviewed And Are Negative: Yes Constitutional: Positive: Fever, Chills Skin: Positive: Negative Eyes: Positive: Negative ENT: Positive: Sore Throat Respiratory: Positive: Negative Cardiovascular: Positive: Negative Gastrointestinal: Positive: Negative Genitourinary: Positive: Negative Motor: Positive: Negative Neurovascular: Positive: Negative Musculoskeletal: Positive: Negative Neurological: Positive: Negative Psychological: Positive: Negative Is Patient Immunocompromised?: No Physical Exam - Summary Physical Exam Summary: Vital signs: Reviewed Gen.: Patient is a well developed and nourished male in no acute distress. Patient is sitting comfortably on the stretcher. Head: Normacephalic and atraumatic Eyes: PERRLA, EOMI x2. Ears: Right ear canal and TM WNL and Left ear canal and TM WNL Nose and mouth: Nose with dry mucosa and clear discharge, Positive pharyngeal erythema with no exudate. Neck: Supple, Positive bilateral submandibular and anterior cervical lymphadenopathy. No JVD Lungs: CTA B/L CVS: S1 & S2 present. No murmurs appreciated. ABDOMEN: Soft NT w/ positive BS. EXT: FROM x 4 NEURO: A+O X 3. Triage Information Reviewed: Yes Appearance: Well-Appearing, No Pain Distress, Well-Nourished Vital Signs: Initial Vital Signs Temp 99.7 F 11/20/18 17:17 Pulse 73 11/20/18 17:17 Resp 18 11/20/18 17:17 BP 143/59 11/20/18 17:17 Pulse Ox 99 11/20/18 17:17 Throat Pain/Nasal Course/Dx - Course Course Of Treatment: Rapid strep is positive. Therefore the patient was given Augmentin. The patient was given the first dose in the urgent care and they sent a prescription for 10 days supply. The patient will follow-up PCP in the next couple days. The patient is hemodynamically stable alert and oriented 3. - Differential Dx/Diagnosis Provider Diagnosis: Strep pharyngitis Discharge - Sign-Out/Discharge Documenting (check all that apply): Patient Departure All imaging exams completed and their final reports reviewed: No Studies - Discharge Plan Condition: Stable Disposition: HOME Prescriptions: Amoxicillin/Clavulanate TAB* [Augmentin TAB 875*] 875 mg PO BID #20 tab Patient Education Materials: Strep Throat (DC) Referrals: Vani Ge MD [Primary Care Provider] - Additional Instructions: Take medications as instructed Increase your fluid intake Return to the if symptoms worsen - Billing Disposition and Condition Condition: STABLE Disposition: Home
[2018-11-20] MEDS ORDERED: Amoxicillin/Clavulanate TAB* 875 MG PO ONE (17:44)
== END 2018-11-20 18:01 | disposition home or self-care (01) ==
LOC: UCEAST 17:11
DX: J02.0 Streptococcal pharyngitis (principal); Z87.891 Personal history of nicotine dependence; Z79.82 Long term (current) use of aspirin; Z91.011 Allergy to milk products
CPT/HCPCS: 87651; 99212; A9270-GY; G0463

== ENCOUNTER 2020-04-23 11:52 | Inpatient (IN) ==
[2020-04-23] MEDS ORDERED: Heparin DRIP 25,000 UNITS BAG 25,000 UNITS/500 ML BAG IV SCH (12:15)
[2020-04-23 12:53] LABS: ABS Lymphocytes 0.9 10^3/ul (1.0-4.8); ABS Monocytes 0.9 10^3/ul (0-0.8); Hematocrit 40 % (42-52); Hemoglobin 13.6 g/dL (14.0-18.0); Mean Corpuscular HGB Conc 34 g/dL (31-36); Mean Corpuscular Hemoglobin 32 pg (27-31); Mean Corpuscular Volume 93 fL (80-94); Mean Platelet Volume 8.5 fL (7.4-10.4); Nucleated Red Blood Cells % 0.1; Platelet Count 239 10^3/uL (150-450); Red Blood Count 4.33 10^6 /uL (4.18-5.48); Red Cell Distribution Width 15 % (10-15); White Blood Count 8.8 10^3/uL (3.5-10.8)
[2020-04-23] MEDS ORDERED: Heparin 5000 UNITS/ML 1 mL VIAL IV SCH (13:00)
[2020-04-23 13:01] LABS: Activated Partial Thrombo Time 48.8 seconds (26.0-38.0); INR 3.42 (0.82-1.09)
[2020-04-23 13:06] LABS: Albumin 4.3 g/dL (3.2-5.2); Albumin/Globulin Ratio 1.6 (1-3); BUN/Creatinine Ratio 23.5 (8-20); Calcium 9.6 mg/dL (8.6-10.3); EGFR African American 87.1 (>60); Globulin 2.7 g/dL (2-4); Total Bilirubin 0.8 mg/dL (0.2-1.0)
[2020-04-23 13:16] LABS: Troponin I 0.31 ng/mL (<0.03)
[2020-04-23 16:25] LABS: Influenza A Molecular Negative (Negative); Influenza B Molecular Negative (Negative)
[2020-04-23 21:00] LABS: Troponin I 0.23 ng/mL (<0.03)
[2020-04-24 00:09] LABS: Troponin I 0.21 ng/mL (<0.03)
[2020-04-24 06:58] LABS: ABS Eosinophils 0.1 10^3/ul (0-0.6); ABS Monocytes 0.8 10^3/ul (0-0.8); Eosinophil % 0.8 %; Hematocrit 40 % (42-52); Hemoglobin 13.1 g/dL (14.0-18.0); Lymphocyte % 14.9 %; Mean Corpuscular HGB Conc 33 g/dL (31-36); Mean Corpuscular Hemoglobin 31 pg (27-31); Mean Corpuscular Volume 94 fL (80-94); Mean Platelet Volume 8.7 fL (7.4-10.4); Nucleated Red Blood Cells % 0.1; Platelet Count 207 10^3/uL (150-450); Red Blood Count 4.21 10^6 /uL (4.18-5.48); Red Cell Distribution Width 15 % (10-15); White Blood Count 6.9 10^3/uL (3.5-10.8)
[2020-04-24 07:06] LABS: INR 4.48 (0.82-1.09)
[2020-04-24 07:22] LABS: Calcium 8.9 mg/dL (8.6-10.3); EGFR African American 93.4 (>60); EGFR Non-African American 77.2 (>60); Potassium 4.2 mmol/L (3.5-5.0)
[2020-04-25 06:31] LABS: INR 3.77 (0.82-1.09)
[2020-04-25] MEDS ORDERED: Naloxone 0.4 mg VIAL 0.4 mg/ml 1 ml VIAL ONE (10:05)
[2020-04-25] MEDS ORDERED: Midazolam 5 mg/5 ml VIAL 1 mg/ml 5 ml VIAL (5 mg) ONE (10:05)
[2020-04-25] MEDS ORDERED: fentaNYL 100 mcg/2 ml 50 MCG/ML VIAL ONE (10:05)
[2020-04-25] MEDS ORDERED: Flumazenil 0.5 mg/5 ml 0.1 MG/ML 5 ml VIAL ONE (10:05)
[2020-04-25] MEDS: NS 0.9% 1000 ml BAG 1,000 ML IV SCH (23:03)
[2020-04-26 06:06] LABS: INR 1.99 (0.82-1.09)
[2020-04-26] MEDS ORDERED: diPHENhydraMINE 25 mg TAB PO PRN (08:00)
[2020-04-26] MEDS ORDERED: Heparin 5000 UNITS/ML 1 mL VIAL IV SCH (09:00)
[2020-04-26 09:20] LABS: ABS Lymphocytes 0.7 10^3/ul (1.0-4.8); ABS Monocytes 0.6 10^3/ul (0-0.8); ABS Neutrophils 5.1 10^3/ul (1.5-7.7); Eosinophil % 0.3 %; Hematocrit 37 % (42-52); Hemoglobin 12.4 g/dL (14.0-18.0); Lymphocyte % 10.6 %; Mean Corpuscular HGB Conc 34 g/dL (31-36); Mean Corpuscular Hemoglobin 32 pg (27-31); Mean Corpuscular Volume 94 fL (80-94); Mean Platelet Volume 8.1 fL (7.4-10.4); Platelet Count 212 10^3/uL (150-450); Red Blood Count 3.92 10^6 /uL (4.18-5.48); Red Cell Distribution Width 15 % (10-15); White Blood Count 6.4 10^3/uL (3.5-10.8)
[2020-04-26 09:40] LABS: EGFR African American 112.1 (>60); EGFR Non-African American 92.6 (>60)
[2020-04-26] MEDS: Heparin DRIP 25,000 UNITS BAG 25,000 UNITS/500 ML BAG IV SCH ×2 (10:03→17:20)
[2020-04-26 12:30] LABS: INR 1.84 (0.82-1.09)
[2020-04-26] MEDS: NS 0.9% 1000 ml BAG 1,000 ML IV SCH (13:07)
[2020-04-27 05:57] LABS: ABS Lymphocytes 0.9 10^3/ul (1.0-4.8); ABS Monocytes 0.5 10^3/ul (0-0.8); ABS Neutrophils 3.6 10^3/ul (1.5-7.7); Eosinophil % 0.7 %; Hematocrit 39 % (42-52); Hemoglobin 12.6 g/dL (14.0-18.0); Lymphocyte % 17.2 %; Mean Corpuscular HGB Conc 32 g/dL (31-36); Mean Corpuscular Hemoglobin 32 pg (27-31); Mean Corpuscular Volume 98 fL (80-94); Mean Platelet Volume 8.4 fL (7.4-10.4); Nucleated Red Blood Cells % 0.1; Platelet Count 174 10^3/uL (150-450); Red Blood Count 3.98 10^6 /uL (4.18-5.48); Red Cell Distribution Width 15 % (10-15); White Blood Count 5.1 10^3/uL (3.5-10.8)
[2020-04-27 06:04] LABS: Activated Partial Thrombo Time 60.7 seconds (26.0-38.0); INR 1.46 (0.82-1.09)
[2020-04-27] MEDS ORDERED: NS 0.9% 1000 ml BAG 1,000 ML IV SCH (09:15)
[2020-04-27] MEDS ORDERED: Midazolam 5 mg/5 ml VIAL 1 mg/ml 5 ml VIAL (5 mg) ONE (09:28)
[2020-04-27] MEDS ORDERED: Heparin 1,000 UNIT/ML 10 ml (10,000 UNITS) CATHLAB/DIALYSIS ONE (09:28)
[2020-04-27] MEDS ORDERED: VERAPAMIL 2.5 MG/ML 2 ML VIAL ** 5 mg/2 ml ONE (09:28)
[2020-04-27] MEDS ORDERED: fentaNYL 100 mcg/2 ml 50 MCG/ML VIAL ONE (09:28)
[2020-04-27] MEDS ORDERED: Heparin 2 UNITS/ML 1000 mls 2,000 ML IV ONE (09:29)
[2020-04-27] MEDS ORDERED: Lidocaine 1% VIAL 10 MG/ML VIAL ONE (09:29)
[2020-04-27] MEDS ORDERED: nitroGLYCERIN DRIP 25,000 MCG/250 ML BTL ONE (09:29)
[2020-04-27] MEDS ORDERED: Iohexol 350 (CONTRAST) 200 ML MDV IV ONE ×2 (09:29→09:39)
[2020-04-27] MEDS ORDERED: Enoxaparin 40 MG/0.4 ML SYR SUBCUT SCH ×2 (15:00→16:00)
[2020-04-27] MEDS ORDERED: Enoxaparin 60 MG/0.6 ML SYR SUBCUT SCH (17:00)
[2020-04-27] MEDS: Warfarin DAILY REMINDER **NOTE FOLLOW UP SCH (17:10)
[2020-04-28 06:17] LABS: ABS Eosinophils 0.1 10^3/ul (0-0.6); ABS Lymphocytes 1.1 10^3/ul (1.0-4.8); ABS Monocytes 0.6 10^3/ul (0-0.8); ABS Neutrophils 3.4 10^3/ul (1.5-7.7); Eosinophil % 1.1 %; Hematocrit 38 % (42-52); Hemoglobin 12.8 g/dL (14.0-18.0); Lymphocyte % 20.6 %; Mean Corpuscular HGB Conc 34 g/dL (31-36); Mean Corpuscular Hemoglobin 32 pg (27-31); Mean Corpuscular Volume 93 fL (80-94); Mean Platelet Volume 8.2 fL (7.4-10.4); Platelet Count 197 10^3/uL (150-450); Red Blood Count 4.05 10^6 /uL (4.18-5.48); Red Cell Distribution Width 15 % (10-15); White Blood Count 5.2 10^3/uL (3.5-10.8)
[2020-04-28 06:33] LABS: EGFR African American 94.6 (>60); EGFR Non-African American 78.2 (>60)
[2020-04-28] MEDS ORDERED: Enoxaparin 60 MG/0.6 ML SYR SUBCUT SCH (08:00)
[2020-04-28 08:38] LABS: INR 1.43 (0.82-1.09)
[2020-04-28] MEDS: Warfarin DAILY REMINDER **NOTE FOLLOW UP SCH (17:23)
[2020-04-28] MEDS ORDERED: Heparin 5000 UNITS/ML 1 mL VIAL IV SCH (20:00)
[2020-04-28] MEDS ORDERED: Heparin DRIP 25,000 UNITS BAG 25,000 UNITS/500 ML BAG IV SCH (20:00)
[2020-04-29 03:22] LABS: ABS Lymphocytes 1.2 10^3/ul (1.0-4.8); ABS Monocytes 0.6 10^3/ul (0-0.8); ABS Neutrophils 3.2 10^3/ul (1.5-7.7); Eosinophil % 0.9 %; Hematocrit 40 % (42-52); Hemoglobin 13.2 g/dL (14.0-18.0); Lymphocyte % 23.7 %; Mean Corpuscular HGB Conc 33 g/dL (31-36); Mean Corpuscular Hemoglobin 31 pg (27-31); Mean Corpuscular Volume 93 fL (80-94); Mean Platelet Volume 8.4 fL (7.4-10.4); Platelet Count 205 10^3/uL (150-450); Red Blood Count 4.25 10^6 /uL (4.18-5.48); Red Cell Distribution Width 15 % (10-15); White Blood Count 5.1 10^3/uL (3.5-10.8)
[2020-04-29 03:36] LABS: EGFR African American 80.7 (>60); EGFR Non-African American 66.7 (>60)
[2020-04-29 10:10] LABS: Activated Partial Thrombo Time 68.1 seconds (26.0-38.0); INR 1.56 (0.82-1.09)
[2020-04-29 10:56] LABS: HDL Cholesterol 31.6 mg/dL
[2020-04-29] MEDS: Warfarin DAILY REMINDER **NOTE FOLLOW UP SCH (17:34)
[2020-04-30 06:20] LABS: ABS Eosinophils 0.1 10^3/ul (0-0.6); ABS Lymphocytes 1.2 10^3/ul (1.0-4.8); ABS Monocytes 0.6 10^3/ul (0-0.8); ABS Neutrophils 3.2 10^3/ul (1.5-7.7); Eosinophil % 1.6 %; Hematocrit 38 % (42-52); Hemoglobin 12.6 g/dL (14.0-18.0); Lymphocyte % 23.8 %; Mean Corpuscular HGB Conc 33 g/dL (31-36); Mean Corpuscular Hemoglobin 31 pg (27-31); Mean Corpuscular Volume 94 fL (80-94); Mean Platelet Volume 8.5 fL (7.4-10.4); Platelet Count 196 10^3/uL (150-450); Red Blood Count 4.02 10^6 /uL (4.18-5.48); Red Cell Distribution Width 15 % (10-15); White Blood Count 5.1 10^3/uL (3.5-10.8)
[2020-04-30 06:29] LABS: INR 1.83 (0.82-1.09)
[2020-04-30 06:34] LABS: EGFR African American 95.7 (>60); EGFR Non-African American 79.1 (>60)
[2020-04-30] MEDS: Warfarin DAILY REMINDER **NOTE FOLLOW UP SCH (17:08)
[2020-05-01 05:50] LABS: ABS Eosinophils 0.1 10^3/ul (0-0.6); ABS Lymphocytes 1.5 10^3/ul (1.0-4.8); ABS Monocytes 0.6 10^3/ul (0-0.8); ABS Neutrophils 3.1 10^3/ul (1.5-7.7); Eosinophil % 2.6 %; Hematocrit 38 % (42-52); Hemoglobin 12.8 g/dL (14.0-18.0); Lymphocyte % 27.6 %; Mean Corpuscular HGB Conc 34 g/dL (31-36); Mean Corpuscular Hemoglobin 32 pg (27-31); Mean Corpuscular Volume 94 fL (80-94); Mean Platelet Volume 8.2 fL (7.4-10.4); Platelet Count 195 10^3/uL (150-450); Red Blood Count 4.05 10^6 /uL (4.18-5.48); Red Cell Distribution Width 15 % (10-15); White Blood Count 5.3 10^3/uL (3.5-10.8)
[2020-05-01 05:54] LABS: INR 2.56 (0.82-1.09)
[2020-05-01 07:47] VITALS: BP 112/57
== END 2020-05-01 11:25 | disposition home or self-care (01) | DRG 287 ==
LOC: ED 11:52 → MED 14:10 → MEDTELE 04-25 13:14
PROVIDERS: ADMIT Internal Medicine; ATTEND Hospitalist